=== PATIENT | male | born 1975 | race Two or more races ===

== ENCOUNTER 2019-04-12 08:40 | Emergency (ER) | payer OTHER ==
[~2019-04-12] VITALS: Ht 175.3 cm; Wt 93.0 kg
[2019-04-12 08:44] VITALS: BP 161/102
[2019-04-12] MEDS ORDERED: CEFTRIAXONE SODIUM 250 MG/VIAL IM ONE (09:30)
[2019-04-12] MEDS ORDERED: AZITHROMYCIN 500 MG TABLET PO ONE (09:30)
== END 2019-04-12 09:52 | disposition home or self-care (01) ==
LOC: ER 08:40
DX: Z20.2 Contact with and (suspected) exposure to infections with a predominantly sexual mode of transmission (principal); F12.10 Cannabis abuse, uncomplicated; F17.200 Nicotine dependence, unspecified, uncomplicated
CPT/HCPCS: 96372; 99283; J0696